=== PATIENT | female | born 1945 | race Caucasian/White ===

== ENCOUNTER → 2018-01-08 | Outpatient (CLI) | payer MEDICARE ==
[~2018-01-08] MED LIST: ASPI81CH; CALCAVITD; CHILDREN'S FLO9.9 ML; CHOL10002; CHOLEST OFF PL450 MG; CHRO200; CLARITIN10 MG; CRANBERRY 12,61 EACH; Coq-10100 MG; KRILL OIL500 MG; LEVSOD50; Ranitidine HCl150 M1; Super B Comple150 MG; [UNRECOGNIZED DRUG - OTHER]
== END | disposition home or self-care (01) ==
LOC: LAB EV 12:40 → LAB SHORT 12:40
DX: N39.0 Urinary tract infection, site not specified (principal)
CPT/HCPCS: 87077; 87086; 87186

== ENCOUNTER 2018-10-23 08:15 | Day surgery (SDC) | payer MEDICARE ==
[~2018-10-23] VITALS: Ht 152.4 cm; Wt 68.7 kg
[2018-10-23] MEDS ORDERED: ALLEGRA ALLERG180 MG (09:11)
[2018-10-23] MEDS ORDERED: OMEP20ER (09:12)
== END 2018-10-23 10:52 | disposition home or self-care (01) ==
LOC: ORSCSDS 08:15
PROVIDERS: Internal Medicine Gastroenterology
PROC: 0DBK8ZX Excision of Ascending Colon, Via Natural or Artificial Opening Endoscopic, Diagnostic (ICD-10-PCS; principal; 2018-10-23 10:00)
PROC: 0DBL8ZX Excision of Transverse Colon, Via Natural or Artificial Opening Endoscopic, Diagnostic (ICD-10-PCS; principal; 2018-10-23 10:00)
DX: Z12.11 Encounter for screening for malignant neoplasm of colon (principal); D12.3 Benign neoplasm of transverse colon; D12.2 Benign neoplasm of ascending colon; K57.30 Diverticulosis of large intestine without perforation or abscess without bleeding; Z87.891 Personal history of nicotine dependence; E03.9 Hypothyroidism, unspecified; Z79.899 Other long term (current) drug therapy
CPT/HCPCS: 88305; J2704; J7120

== ENCOUNTER → 2019-04-06 | Outpatient (CLI) | payer MEDICARE ==
[~2019-04-06] MED LIST changes: +ALLEGRA ALLERG180 MG; +OMEP20ER
== END ==
LOC: LAB SHORT 15:00 → LAB EV 15:00
DX: N39.0 Urinary tract infection, site not specified (principal)
CPT/HCPCS: 87077; 87086; 87186

== ENCOUNTER 2019-09-29 13:37 | Day surgery (SDC) | payer MEDICARE ==
[~2019-09-29] VITALS: Ht 154.9 cm; Wt 73.3 kg
== END 2019-09-29 16:54 | disposition home or self-care (01) ==
LOC: ORSCSDS 13:37
PROVIDERS: Internal Medicine Gastroenterology
PROC: 0DJ08ZZ Inspection of Upper Intestinal Tract, Via Natural or Artificial Opening Endoscopic (ICD-10-PCS; principal; 2019-09-29 15:00)
DX: Z86.010 Personal history of colon polyps (principal); K44.9 Diaphragmatic hernia without obstruction or gangrene; K57.30 Diverticulosis of large intestine without perforation or abscess without bleeding; E03.9 Hypothyroidism, unspecified; E66.9 Obesity, unspecified; Z68.30 Body mass index [BMI] 30.0-30.9, adult; Z87.891 Personal history of nicotine dependence; Z79.899 Other long term (current) drug therapy
CPT/HCPCS: J2704; J7120

== ENCOUNTER 2019-12-08 08:41 | Day surgery (SDC) | payer MEDICARE ==
[~2019-12-08] VITALS: Ht 157.5 cm; Wt 71.6 kg
[~2019-12-08 08:41] MED LIST changes: -ALLEGRA ALLERG180 MG; +ALLEGRA ALLERG180 MG PO; -CHOL10002; +CHOLEST-OFF PO; +Calcium + Vita1 EACH PO; -Coq-10100 MG; +Coq-10100 MG PO; +EUTHYROX50 MCG PO; +FLUT.05NI; +HAIR, SKIN AND1 EAC3 PO; -KRILL OIL500 MG; +KRILL OIL500 MG PO; -LEVSOD50; -OMEP20ER; +OMEP20ER PO; +VITAMIN D310 MC4 PO; +Vitamin B Comple1 EA PO; -[UNRECOGNIZED DRUG - OTHER]; +[UNRECOGNIZED DRUG - OTHER] PO
--- NOTE | 2019-12-08 10:34 | NUR ---
Ambulatory in Day Surgery History, Chart, Medications and Allergies reviewed before start of procedure.Patient confirms NPO status and agrees with scheduled surgery. Patient reports completing Chlorhexadine shower X2 prior to admission to hospital.Surgical site prepped with 2% Chlorhexidine cloth wipe.
--- NOTE | 2019-12-08 19:45 | NUR ---
SHIFT SUMMARY PT A&OX4, VSS, S/P R TKA, DRESSING CDI. PAIN MANAGED PER EMAR. SID PO, DENIES N&V. AMB W/FWW TO BSC & CHAIR. VOIDING WELL. REPORT PROVIDED TO VERENICE BALL.
--- NOTE | 2019-12-09 02:52 | NUR ---
SHIFT SUMMARY PT A/OX4 WITH VSS. POD 1 S/P RIGHT TKA. AQUACEL APPEARS C/D/I, POLAR PACK IN PLACE T/O SHIFT. PT AMBULATING WITH FWW/GB/SBA. IS VOIDING AND SID PO INTAKE, DENIES N/V. ABX INFUSED PER ORDERS. PAIN MANAGED WITH 2 TAB OXYCODONE Q4 AND TYLENOL. PT APPEARS TO HAVE SLEPT WELL T/O NIGHT. WILL CONT TO MONITOR FOR CHANGES IN PT CONDITION AND GIVE REPORT TO ONCOMING RN.
[2019-12-09 05:07] LABS: BASOPHILS ABSOLUTE AUTO 0.03 K/mm3 (0.00-0.23); BASOPHILS PERCENT AUTO 0 % (0-2); EOSINOPHILS ABSOLUTE AUTO 0.01 K/mm3 (0.00-0.68); EOSINOPHILS PERCENT AUTO 0 % (0-6); Hematocrit 41.4 % (33.0-51.0); Hemoglobin 13.3 g/dL (11.5-16.0); IMMATURE GRAN ABSOLUTE AUTO 0.04 K/mm3 (0.00-0.10); IMMATURE GRAN PERCENT AUTO 0 % (0-1); LYMPHOCYTES ABSOLUTE AUTO 1.07 K/mm3 (0.84-5.20); LYMPHOCYTES PERCENT AUTO 7 % (21-46); MONOCYTES ABSOLUTE AUTO 0.54 K/mm3 (0.16-1.47); MONOCYTES PERCENT AUTO 4 % (4-13); Mean Corpuscular HGB 29.6 pg (26.0-34.0); Mean Corpuscular HGB Conc 32.1 g/dL (31.5-36.5); Mean Corpuscular Volume 92 fL (80-100); Mean Platelet Volume 12.1 fL (9.1-12.4); NEUTROPHILS ABSOLUTE AUTO 12.93 K/mm3 (1.96-9.15); NEUTROPHILS PERCENT AUTO 88 % (41-73); Platelet Count 226 K/mm3 (150-400); RDW Coefficient Variation 13.5 % (11.7-14.2); RDW Standard Deviation 46.2 fL (35.1-46.3); White Blood Cell Count 14.62 K/mm3 (4.00-11.30)
[2019-12-09 05:35] LABS: Bun/Creatinine Ratio 16.3 (12.0-20.0); Calcium, Blood 9.4 mg/dL (8.5-10.1); Creatinine, Blood 1.29 mg/dL (0.40-1.00); Magnesium, Blood 2.3 mg/dL (1.6-2.4); Potassium, Blood 4.7 mmol/L (3.5-5.5)
--- NOTE | 2019-12-09 06:08 | NUR ---
PT WISHES TO REMAIN IN BED AT THIS TIME, STATING "I WOULD RATHER SLEEP" WHEN ASKED IF SHE WOULD LIKE TO AMBULATE OR DRESSED. WILL INFORM DAY RN.
[2019-12-09] MEDS ORDERED: XARELTO20 MG PO (08:46)
[2019-12-09] MEDS ORDERED: ROXYBOND5 MG PO (08:47)
--- NOTE | 2019-12-09 10:46 | NUR ---
DISCHARGE PT GIVEN WRITTEN AND VERBAL DISCHARGE INSTRUCTIONS AND VERBALIZED UNDERSTANDING OF THESE INSTRUCTIONS. IV REMOVED. RX FOR XARELTO FAXED TO [facility] ON [address], HARD COPY FOR PAIN MEDICATION GIVEN TO PT-COPY ON CHART. WILL DC WHEN RIDE ARRIVES.
== END 2019-12-09 11:19 | disposition home or self-care (01) ==
LOC: ORSCMMR 08:41 → ORD 10:30 → ORSCMMR 14:38 → SURS 14:38 → ORSCMMR 12-09 11:19
PROVIDERS: Orthopaedic Surgery
PROC: 0SRC0J9 Replacement of Right Knee Joint with Synthetic Substitute, Cemented, Open Approach (ICD-10-PCS; principal; 2019-12-08 10:30)
PROC: 8E0Y0CZ Robotic Assisted Procedure of Lower Extremity, Open Approach (ICD-10-PCS; principal; 2019-12-08 10:30)
DX: M17.11 Unilateral primary osteoarthritis, right knee (principal); E78.5 Hyperlipidemia, unspecified; E03.9 Hypothyroidism, unspecified; K21.9 Gastro-esophageal reflux disease without esophagitis; Z79.899 Other long term (current) drug therapy
CPT/HCPCS: 27447; S2900; 36415; 73560-RT; 80048; 83735; 85025; 88300; 97110; 97161; A9270-GY; C1776; J0171; J0690; J0735; J1100; J1885; J2250; J2405; J2704; J2795; J7120; U0002

== ENCOUNTER → 2021-02-20 | Outpatient (CLI) | payer MEDICARE ==
[~2021-02-20] MED LIST changes: +ROXYBOND5 MG PO; +XARELTO20 MG PO
== END | disposition home or self-care (01) ==
LOC: LAB 12:51 → LAB SHORT 12:51
DX: N39.0 Urinary tract infection, site not specified (principal)
CPT/HCPCS: 87077; 87086; 87186

== ENCOUNTER → 2021-03-25 | Outpatient (CLI) | payer MEDICARE | END | disposition home or self-care (01) | LOC: LAB SHORT 12:51 → LAB 12:51 | DX: N39.0 Urinary tract infection, site not specified (principal) | CPT/HCPCS: 87077; 87086; 87186 ==

== ENCOUNTER → 2021-07-04 | Outpatient (CLI) | payer MEDICARE ==
[2021-07-04 13:27] LABS: Free Thyroxine 1.32 ng/dL (0.70-1.60); Thyroid Stimulating Hormone 1.208 uIU/mL (0.360-4.800)
== END ==
LOC: LAB SHORT 12:54
PROVIDERS: Physician Assistant
DX: E03.9 Hypothyroidism, unspecified (principal)
CPT/HCPCS: 84439; 84443; 84481

== ENCOUNTER → 2022-05-31 | Outpatient (CLI) | payer MEDICARE | END | disposition home or self-care (01) | LOC: LAB SHORT 14:41 → LAB 14:41 | DX: D48.5 Neoplasm of uncertain behavior of skin (principal) | CPT/HCPCS: 88305 ==

== ENCOUNTER 2023-09-28 07:28 | Day surgery (SDC) | payer MEDICARE ==
[~2023-09-28 07:28] MED LIST changes: +CALCIUM PO; +CHOLESTOFF PO; +COQ1050 MG PO; +GABA100 PO; +GARLIC200 MG PO; +KRILL OIL 1,001 EACH PO; +LACT PO; +LEVOTHYROXINE50 MC9 PO
== END 2023-09-28 22:42 | disposition home or self-care (01) ==
LOC: MOI US 07:28
DX: C50.411 Malignant neoplasm of upper-outer quadrant of right female breast (principal); C77.3 Secondary and unspecified malignant neoplasm of axilla and upper limb lymph nodes
CPT/HCPCS: 19285; 38505; 77065; A4648

== ENCOUNTER 2023-10-03 09:19 | Day surgery (SDC) | payer MEDICARE ==
[2023-10-03] VITALS (16 sets, daily range): BP systolic 136–171; BP diastolic 68–79
[~2023-10-03] VITALS: Ht 153.5 cm; Wt 67.0 kg
[~2023-10-03 09:19] MED LIST changes: +CeFAZolin Sodium 2,000 MG in NS 100 ML IV SCH; +Lactated Ringer's 1,000 ML IV SCH
[2023-10-03] MEDS ORDERED: Lidocaine HCl 1% 30 ML SDV ONE (09:54)
[2023-10-03] MEDS ORDERED: Bupivacaine 0.5% HCl 5 MG/ML 30MLVIAL ONE (09:54)
[2023-10-03] MEDS ORDERED: Methylene Blue 1% 100 MG/10 ML VIAL ONE (09:54)
[2023-10-03] MEDS ORDERED: [UNRECOGNIZED DRUG - OTHER] PO (10:11)
[2023-10-03] MEDS ORDERED: PROBIOTIC1 EA13 PO (10:25)
[2023-10-03] MEDS ORDERED: propofoL 20 ML IV ONE (11:13)
[2023-10-03] MEDS ORDERED: FentaNYL Citrate 50 MCG/ML 2 ML Injection ONE (11:14)
[2023-10-03] MEDS ORDERED: ePHEDrine Sulfate 50 MG/ML 1ML Injection ONE (11:38)
[2023-10-03] MEDS ORDERED: Ondansetron HCl 2 MG / ML 2ML Vial ONE (12:04)
[2023-10-03] MEDS ORDERED: Dexamethasone Sod Phos 10 MG/ML 1ML VIAL ONE (12:04)
[2023-10-03] MEDS ORDERED: HYDROmorphone HCl/Pf 1MG SYR ONE (14:36)
[2023-10-03] MEDS ORDERED: HYDROcodone 5-APAP 325 TAB PO PRN (14:55)
--- NOTE | 2023-10-03 16:06 | NUR ---
Discharge instructions reviewed with patient. Patient verbalizes understanding. Copy given to patient to take home. BONY instructions/demonstration reviewed with pt. Prescription placed in discharge folder. Patient States Post-Procedure ride home has been arranged. Dressing c/d/i. Discharged via wheelchair to private car for ride home.
== END 2023-10-03 16:10 | disposition home or self-care (01) ==
LOC: ORSCMMR 09:19 → NM 09:19 → ORSCMMR 09:21 → NM 10:30
PROVIDERS: Surgery
PROC: 0HBT0ZZ Excision of Right Breast, Open Approach (ICD-10-PCS; principal; 2023-10-03 11:30)
PROC: 07B50ZX Excision of Right Axillary Lymphatic, Open Approach, Diagnostic (ICD-10-PCS; principal; 2023-10-03 11:30)
DX: C50.911 Malignant neoplasm of unspecified site of right female breast (principal); C77.3 Secondary and unspecified malignant neoplasm of axilla and upper limb lymph nodes; Z17.0 Estrogen receptor positive status [ER+]; I12.9 Hypertensive chronic kidney disease with stage 1 through stage 4 chronic kidney disease, or unspecified chronic kidney disease; N18.9 Chronic kidney disease, unspecified; E03.9 Hypothyroidism, unspecified; K21.9 Gastro-esophageal reflux disease without esophagitis; Z85.528 Personal history of other malignant neoplasm of kidney; Z79.899 Other long term (current) drug therapy; Z87.891 Personal history of nicotine dependence
CPT/HCPCS: 38792; 76098; 88307; 88331; 88342; A9270; A9520; J0690; J1100; J1170; J2405; J2704; J3010; J7120; Q9968

== ENCOUNTER 2024-01-11 07:48 | Day surgery (SDC) | payer MEDICARE ==
[~2024-01-11] VITALS: Ht 152.4 cm; Wt 66.8 kg
[~2024-01-11 07:48] MED LIST changes: +Bupivacaine 0.5% HCl 5 MG/ML 30MLVIAL ONE; -CeFAZolin Sodium 2,000 MG in NS 100 ML IV SCH; +Lactated Ringer's 1,000 ML IV ONE; -Lactated Ringer's 1,000 ML IV SCH; +PROBIOTIC1 EA13 PO; +[UNRECOGNIZED DRUG - OTHER] PO
[2024-01-11] MEDS ORDERED: CeFAZolin Sodium 2,000 MG VIAL ONE (07:59)
[2024-01-11] MEDS ORDERED: NS 50 ML IV ONE (08:00)
[2024-01-11] MEDS ORDERED: FentaNYL Citrate 50 MCG/ML 2 ML Injection ONE ×2 (08:14→10:25)
[2024-01-11] MEDS ORDERED: propofoL 20 ML IV ONE (08:14)
[2024-01-11] MEDS ORDERED: ANASTROZOLE1 M7 PO (08:22)
[2024-01-11] MEDS ORDERED: THERA-D2000 UNIT PO (08:24)
[2024-01-11] MEDS ORDERED: ASCORBIC ACID500 MG PO (08:25)
[2024-01-11] MEDS ORDERED: Lactated Ringer's 1,000 ML IV ONE (08:36)
[2024-01-11] MEDS ORDERED: ePHEDrine Sulfate 50 MG/ML 1ML Injection ONE (09:01)
[2024-01-11] MEDS ORDERED: Dexamethasone Sod Phos 10 MG/ML 1ML VIAL ONE (09:33)
[2024-01-11] MEDS ORDERED: Ondansetron HCl 2 MG / ML 2ML Vial ONE (09:33)
[2024-01-11] MEDS ORDERED: Esmolol HCL 10 MG/ML 10ML VIAL ONE (09:36)
[2024-01-11] MEDS ORDERED: OxyCODONE 5 mg/Acetamin 325 mg TABLET ONE (10:23)
--- NOTE | 2024-01-11 10:26 | NUR ---
01/11/24 1026 [facility] PAIN 11/23. MED TO BE GIVEN FOR PAIN. DECREASED O2 FROM 10L TO 5L O2 SAT 100%. TRIAL SUCCESSFUL. O2 100% ON 5L. WILL DECREASE TO 2L
--- NOTE | 2024-01-11 10:55 | NUR ---
01/11/24 1055 [facility] PAIN HAS DECREASED TO A 5-6 PER PT
[2024-01-11 11:07] VITALS: BP 154/83
== END 2024-01-11 12:05 | disposition home or self-care (01) ==
LOC: ORSCSDS 07:48
PROVIDERS: Podiatrist Foot & Ankle Surgery
PROC: 0QSR04Z Reposition Left Toe Phalanx with Internal Fixation Device, Open Approach (ICD-10-PCS; principal; 2024-01-11 09:15)
PROC: 0SGL04Z Fusion of Left Tarsometatarsal Joint with Internal Fixation Device, Open Approach (ICD-10-PCS; principal; 2024-01-11 09:15)
DX: M21.612 Bunion of left foot (principal); I12.9 Hypertensive chronic kidney disease with stage 1 through stage 4 chronic kidney disease, or unspecified chronic kidney disease; N18.9 Chronic kidney disease, unspecified; Z87.891 Personal history of nicotine dependence; Z85.528 Personal history of other malignant neoplasm of kidney; Z85.3 Personal history of malignant neoplasm of breast; K21.9 Gastro-esophageal reflux disease without esophagitis; Z79.899 Other long term (current) drug therapy
CPT/HCPCS: A9270; C1713; J0690; J1100; J2405; J2704; J3010; J7120

== ENCOUNTER → 2024-06-25 | Outpatient (CLI) | payer MEDICARE ==
[~2024-06-25] MED LIST changes: +ANASTROZOLE1 M7 PO; +ASCORBIC ACID500 MG PO; -Bupivacaine 0.5% HCl 5 MG/ML 30MLVIAL ONE; -Lactated Ringer's 1,000 ML IV ONE; +THERA-D2000 UNIT PO
[2024-06-26 18:31] LABS: C DIFFICILE DNA NEGATIVE (Negative)
== END ==
LOC: LAB SHORT 16:10 → LAB 16:10
PROVIDERS: Nurse Practitioner Family
DX: R19.7 Diarrhea, unspecified (principal)
CPT/HCPCS: 87493